=== PATIENT | female | born 1985 | race Caucasian/White ===

== ENCOUNTER 2022-05-01 10:36 | Outpatient (CLI) | payer OTHER, SELFPAY ==
[2022-05-01 20:10] LABS: HIV 1/2 Ab P24 Ag Result Negative (Negative)
[2022-05-01 20:21] LABS: Hepatitis B Surface Antigen Negative (Negative)
[2022-05-01 20:38] LABS: Hepatitis C Virus Antibody Negative (Negative)
[2022-05-02 07:52] LABS: Rapid Plasma Reagin Non-Reactive (NonReactive)
[2022-05-09 20:30] LABS: HSV 1 IgM Screen Negative (Negative); HSV 2 IgM Screen Negative (Negative)
== END 2022-05-01 10:37 | disposition home or self-care (01) ==
PROVIDERS: Visit Provider Student in an Organized Health Care Education/Training Program
DX: Z11.3 Encounter for screening for infections with a predominantly sexual mode of transmission (principal)
CPT/HCPCS: 36415; 86592; 86695; 86696; 86703; 86803; 87340; G0432

== ENCOUNTER 2024-08-13 14:48 | Outpatient (CLI) | payer OTHER, SELFPAY ==
[2024-08-13 16:14] LABS: HIV 1/2 Ab P24 Ag Result Negative (Negative)
[2024-08-13 16:21] LABS: Hepatitis C Virus Antibody Negative (Negative)
[2024-08-14 11:29] LABS: Rapid Plasma Reagin Non-Reactive (NonReactive)
[2024-08-16 08:48] LABS: Hepatitis Be Antibody NON-REACTIVE (NON-REACTIVE)
== END 2024-08-13 14:49 | disposition home or self-care (01) ==
PROVIDERS: Visit Provider Nurse Practitioner Obstetrics & Gynecology
DX: Z11.3 Encounter for screening for infections with a predominantly sexual mode of transmission (principal)
CPT/HCPCS: 36415; 86592; 86703; 86707; 86803; G0432